=== PATIENT | female | born 1995 | race Caucasian/White ===

== ENCOUNTER 2017-05-31 10:41 | Emergency (ER) | payer OTHER ==
[2017-05-31 10:45] VITALS: TEMP 98.1
[2017-05-31] MEDS ORDERED: NS 1,000 ML IV ONE (11:30)
--- NOTE | 2017-05-31 11:31 | EDPHY ---
General Time Seen by Provider: 05/31/17 11:27 Narrative: CHIEF COMPLAINT: Left-sided rib pain HISTORY OF PRESENT ILLNESS: Patient complains of greater than 1 week history of left-sided rib pain. It is a constant, moderate to severe pain. Just below the left breast. No trauma or injury. She has been coughing and does smoke, but denies any worsening of her symptoms. She has no actual chest pain or no exertional pain. It is worse with palpation and movement and inspiration. No numbness or tingling. No sweating. No nausea vomiting. She has had 2 x-rays performed prior to today that were both reportedly normal. She has no laboratory studies evaluated. No recent travel or trauma. No other associated complaints or modifying factors REVIEW OF SYSTEMS: Ten systems reviewed and are negative unless otherwise noted in the HPI PCP: [facility] SPECIALISTS: None PAST MEDICAL HISTORY: Allergic rhinitis PAST SURGICAL HISTORY: None SOCIAL HISTORY: Daily smoker. Occasional alcohol. No drug use. [employer] student. Originally from [place]. FAMILY HISTORY: Noncontributory EXAMINATION General Appearance: Alert, no distress Head: normocephalic, atraumatic Eyes: Pupils equal and round, no conjunctival pallor or injection ENT, Mouth: Mucous membranes moist Neck: Normal inspection, supple, non-tender Respiratory: Lungs are clear to auscultation. No wheezing rhonchi or crackles. Tenderness to the anterior actually line of ribs 6, 7, 8 Cardiovascular: Regular rate and rhythm. No murmur. Gastrointestinal: Abdomen is soft and nontender Back: non-tender, no bony abnormalities Neurological: A&O, nonfocal, normal gait Skin: Warm and dry, no rash. No petechiae or purpura Extremities: Nontender, no pedal edema Psychiatric: Mood and affect normal DIFFERENTIAL DIAGNOSES: Including but not limited to costochondritis, intercostal strain, rib fracture, pneumonia pleurisy, PE MDM: 11:30 a.m. Left-sided rib and chest pain of 1 week duration. She has had 2-chest x-rays including rib series. No trauma or injury. This is a persistent pain. Not exertional. Does not radiate. Worse with inspiration and palpation. She is here requesting CT scan. I do not feel this is unreasonable given the duration of her pain with normal x-rays. I have ordered CT angiography to rule out PE, although my clinical suspicion of PE is very low. I do not feel this is cardiac is this is a mostly reproducible pain. CT scan has been ordered. IV is currently being placed we will check an HCG prior to scanned 1:35 p.m. Notified by radiologist Dr. Hackett. CT scan is unremarkable for any acute findings. 1:45 p.m. Patient re-evaluated. I discussed the negative CT scan findings and negative laboratory studies. I do feel this is likely intercostal muscle strain versus costochondritis. She has normal vital signs. She is in no acute distress. She is resting comfortably. We discussed discharge home with anti- inflammatories, short course of muscle relaxant pain medication. We discussed follow up with primary care physician. We discussed ED precautions. She is comfortable this plan and discharged home stable condition. SUPERVISION: Patient was independently examined, but I discussed the case with my secondary supervising physician Dr. Solano - Diagnostics Imaging Results: Imaging Impressions Chest/Thorax CTA 05/31/17 11:27 Impression: 1. No evidence of thrombopulmonary embolic disease. 2. No evidence for acute cardiopulmonary abnormality. Results called and discussed with Kin Rojas PA-C at 05/31/2017 13:35. - History Smoking Status: Current every day smoker - Objective Vital Signs: Initial Vital Signs Temperature (C) 98.1 F 05/31/17 10:41 Heart Rate 65 05/31/17 10:41 Respiratory Rate 16 05/31/17 10:41 Blood Pressure 111/62 05/31/17 10:41 O2 Sat (%) 97 05/31/17 10:41 O2 Delivery Mode Room Air Allergies/Adverse Reactions: No Known Allergies Allergy (Unverified 05/31/17 10:45) Home Medications: Medication Instructions Recorded Cyclobenzaprine [Flexeril 10 MG 10 mg PO TID PRN #11 tab 05/31/17 (*)] Fexofenadine HCl [Nicolasa Allergy] 60 mg PO 05/31/17 Hydrocodone/APAP 5/325 [[place] 1 - 2 tab PO Q4H PRN #7 tab 05/31/17 5/325 (*)] Laboratory Results: Laboratory Results 05/31/17 11:36 05/31/17 05/31/17 11:36 11:34 WBC 7.85 10^3/uL 10^3/uL (3.80-9.50) RBC 5.22 10^6/uL 10^6/uL (4.18-5.33) Hgb 15.1 g/dL g/dL (12.6-16.3) POC Hgb 16.0 gm/dL gm/dL (12.6-16.3) Hct 45.6 % % (38.0-47.0) POC Hct 47 % % (38-47) MCV 87.4 fL fL (81.5-99.8) MCH 28.9 pg pg (27.9-34.1) MCHC 33.1 g/dL g/dL (32.4-36.7) RDW 13.8 % % (11.5-15.2) Plt Count 318 10^3/uL 10^3/uL (150-400) MPV 10.1 fL fL (8.7-11.7) Neut % (Auto) 62.6 % % (39.3-74.2) Lymph % (Auto) 25.4 % % (15.0-45.0) [place] % (Auto) 5.7 % % (4.5-13.0) Eos % (Auto) 5.2 % % (0.6-7.6) Baso % (Auto) 0.8 % % (0.3-1.7) Nucleat RBC Rel Count 0.0 % % (0.0-0.2) Absolute Neuts (auto) 4.92 10^3/uL 10^3/uL (1.70-6.50) Absolute Lymphs (auto) 1.99 10^3/uL 10^3/uL (1.00-3.00) Absolute Monos (auto) 0.45 10^3/uL 10^3/uL (0.30-0.80) Absolute Eos (auto) 0.41 10^3/uL H 10^3/uL (0.03-0.40) Absolute Basos (auto) 0.06 10^3/uL 10^3/uL (0.02-0.10) Absolute Nucleated RBC 0.00 10^3/uL 10^3/uL (0-0.01) Immature Gran % 0.3 % % (0.0-1.1) Immature Gran # 0.02 10^3/uL 10^3/uL (0.00-0.10) POC Sodium 141 mEq/L mEq/L (135-145) POC Potassium 4.2 mEq/L mEq/L (3.3-5.0) POC Chloride 103 mEq/L mEq/L (97-110) POC BUN 16 mg/dL mg/dL (7-23) POC Creatinine 0.7 mg/dL mg/dL (0.6-1.0) POC Glucose 87 mg/dL mg/dL (70-100) Medications Given: Discontinued Medications Sodium Chloride (Ns) 1,000 mls @ 0 mls/hr IV EDNOW ONE; Wide Open PRN Reason: Protocol Stop: 05/31/17 11:31 Last Admin: 05/31/17 11:50 Dose: 1,000 mls Point of Care Test Results: 05/31/17 11:34 POC Sodium 141 POC Potassium 4.2 POC Chloride 103 POC BUN 16 POC Creatinine 0.7 POC Glucose 87 Departure - Departure Disposition: Home, Routine, Self-Care Clinical Impression: Left-sided chest wall pain Condition: Good Instructions: Costochondritis (ED), Chest Wall Pain (ED) Additional Instructions: 1. Over the counter ibuprofen 400mg every 6-8 hours as needed 2. Prescription medication as provided as needed 3. Follow up with your established physician for further care 4. ED return precautions as discussed Referrals: NONE *PRIMARY CARE P,. [Primary Care Provider] - As per Instructions Physician,Emergency DeptMD [Medical Doctor] - As per Instructions Stand Alone Forms: School Excuse Prescriptions: Cyclobenzaprine [Flexeril 10 MG (*)] 10 mg PO TID PRN #11 tab PRN Reason: Spasms Hydrocodone/APAP 5/325 [[place] 5/325 (*)] 1 - 2 tab PO Q4H PRN #7 tab PRN Reason: Pain, Moderate
[2017-05-31 11:47] LABS: PLATELET COUNT 318 10^3/uL (150-400)
[2017-05-31] MEDS ORDERED: IOPAMIDOL (ISOVUE-300) 100 ML BTL ONE (12:48)
[2017-05-31] MEDS ORDERED: IOPAMIDOL (ISOVUE 370) 100 ML BTL IV ONE (12:49)
[2017-05-31 14:21] VITALS: BP 107/71; PULSE 50; RESP 20; O2SAT 99
== END 2017-05-31 14:17 | disposition home or self-care (01) ==
DX: R07.89 Other chest pain (principal); F17.200 Nicotine dependence, unspecified, uncomplicated; E86.9 Volume depletion, unspecified
CPT/HCPCS: 82947-QW; Q9967

== ENCOUNTER 2018-01-14 08:24 | Emergency (ER) | payer OTHER ==
--- NOTE | 2018-01-14 08:37 | EDPHY ---
H & P Stated Complaint: Left ankle injury Time Seen by Provider: 01/14/18 08:37 HPI/ROS: CHIEF COMPLAINT: Left foot injury HISTORY OF PRESENT ILLNESS: The patient is a 22 y/o female complaining of left foot pain onset yesterday. She tripped walking down steps around 16:00 yesterday and twisted her left ankle. She has since been unable to walk or bear weight on her left foot due to pain. Pain is also worse with movement of her left toes. She has a history of a prior "hairline fracture" in her foot, but is unable to provide more detail on this. She has been treating her pain with rest , ice, and elevation of her foot. She hasn't taken anything for pain. She is generally healthy. REVIEW OF SYSTEMS: A ten system review of systems was performed and is negative with the exception of the items mentioned in the HPI. Past medical history: Prior left foot fracture Past surgical history: Denies Family history: Noncontributory Social history: [employer] Student. General Appearance: Alert. Vital signs reviewed. Eyes: Pupils equal and round, no conjunctival injection, no discharge. Anicteric. ENT, Mouth: Mucous membranes are moist. Neck: Supple. Respiratory: No distress Cardiovascular: Normal capillary refill. Skin: Warm and dry, no rashes on exposed skin, normal color. Extremities: No lower extremity edema, no calf tenderness or swelling. Left foot and ankle: tenderness over 3rd and 4th metatarsals. Tenderness distal to left lateral malleolus. No swelling. Dorsalis pedis pulse intact. ROM deferred. Neurological: Alert and oriented. Moving all four extremities easily and equally. Psychiatric: Normal affect. - Personal History LMP (Females 10-55): 1-7 Days Ago Current Tetanus/Diphtheria Vaccine: Yes - Medical/Surgical History Hx Asthma: No Hx Chronic Respiratory Disease: No Hx Diabetes: No Hx Cardiac Disease: No Hx Renal Disease: No Hx Cirrhosis: No Hx Alcoholism: No Other PMH: neg per pt - Social History Smoking Status: Never smoked Constitutional: Initial Vital Signs Temperature (C) 36.9 C 01/14/18 08:27 Heart Rate 68 01/14/18 08:27 Respiratory Rate 18 01/14/18 08:27 Blood Pressure 130/82 H 01/14/18 08:27 O2 Sat (%) 96 01/14/18 08:27 O2 Delivery Mode Room Air Allergies/Adverse Reactions: No Known Allergies Allergy (Unverified 01/14/18 08:30) Home Medications: Medication Instructions Recorded Cyclobenzaprine [Flexeril 10 MG 10 mg PO TID PRN #11 tab 05/31/17 (*)] Fexofenadine HCl [Nicolasa Allergy] 60 mg PO 05/31/17 Hydrocodone/APAP 5/325 [[place] 1 - 2 tab PO Q4H PRN #7 tab 05/31/17 5/325 (*)] Medical Decision Making - Diagnostics Imaging: I viewed and interpreted images myself ED Course/Re-evaluation: This is a healthy 22 y/o female who presents for evaluation of a left foot injury that occurred yesterday. She has pain primarily over her left 3rd and 4th metatarsals. Plan for x-ray to rule out fracture. Left foot x-ray: no acute fracture per my interpretation. There is evidence of what appears to be an old injury of the 4th metatarsal which is consistent with her history. Patient will be discharged in post-op shoe and crutches with normal sprain care and follow up instructions. Return precautions discussed. She is comfortable with this plan. 01/17/2018. I have reviewed the radiologist's interpretation of her foot x-ray and note that there is a question of a fracture involving the dorsal aspect of the talar head. I will review these x-rays. I do not think that the location of her pain is consistent with this. I will contact her to see how she is doing. Differential Diagnosis: I considered a differential diagnosis that includes but is not limited to fracture, dislocation, contusion, and sprain. - Data Points Medications Given: Discontinued Medications Acetaminophen (Tylenol) 650 mg PO EDNOW ONE Stop: 01/14/18 09:16 Last Admin: 01/14/18 09:19 Dose: 650 mg Departure - Departure Disposition: Home, Routine, Self-Care Clinical Impression: Sprain of left foot Qualifiers: Encounter type: initial encounter Qualified Code(s): S93.602A - Unspecified sprain of left foot, initial encounter Condition: Good Instructions: Foot Sprain (ED) Additional Instructions: 1. Wear post-op shoe and use crutches as needed for comfort. Okay to bear weight as tolerated. 2. Use ibuprofen and Tylenol as directed for pain over the next few days. 3. Follow up with your primary care provider as needed for unimproved symptoms over the next week. Referrals: [facility],. [Clinic] - As per Instructions Report Scribed for: Codi Collado Report Scribed by: Cristina Alberto Date of Report: 01/14/18 Time of Report: 09:41 Physician Review and Approval Statement: 01/14/18 08:37 Portions of this note were transcribed by the medical coding specialist. I, Dr. Codi Collado, personally performed the history, physical exam, and medical decision- making; and confirmed the accuracy of the information in the transcribed note.
[2018-01-14] MEDS ORDERED: ACETAMINOPHEN 325 MG TAB PO ONE (09:15)
[2018-01-14 10:04] VITALS: BP 120/86
== END 2018-01-14 10:00 | disposition home or self-care (01) ==
DX: S93.602A Unspecified sprain of left foot, initial encounter (principal); W10.8XXA Fall (on) (from) other stairs and steps, initial encounter; Y92.9 Unspecified place or not applicable; Z87.81 Personal history of (healed) traumatic fracture
CPT/HCPCS: L4386